=== PATIENT | male | born 1950 | race Caucasian/White ===

== ENCOUNTER 2016-10-02 06:54 | Day surgery (SDC) | payer MEDICARE, OTHER ==
--- NOTE | ~2016-10-02 | EGD ---
EGD REPORT [facility] [address] [id number] NAME: LYNETTE ZIEGLER : 46 STATUS : REG [facility]#: [id number] AGE: 66 ADM/REG DATE : 10/02/16 MR#: [id number] REPORT SERV DATE: 10/02/16 DICTATED BY: LINDA PINO DATE: 10/02/16 REPORT STATUS : Draft TRANSCRIBED BY: [employer] DATE: 10/02/16 [facility] Patient Name: Lynette Ziegler Date of : 1950 Attending MD: LINDA PINO, Procedure Date No Time: 10/02/2016 Procedure: Upper GI endoscopy Indications: Follow-up of previous ablation treatment of Cleaning's esophagus Referring MD: NUVIA MCGEE JR., SHAUN SINCLAIR MD Medicines: Monitored Anesthesia Care Complications: No immediate complications. Estimated blood loss: None. Procedure: After obtaining informed consent, the endoscope was passed under direct vision. Throughout the procedure, the patient's blood pressure, pulse, and oxygen saturations were monitored continuously. The GIF [id number] was introduced through the mouth, and advanced to the second part of duodenum. The upper GI endoscopy was accomplished without difficulty. The patient tolerated the procedure well. Findings: The Z-line was irregular. Focal radiofrequency ablation of Cleaning's esophagus was performed. With the endoscope in place, the position and extent of the Cleaning's mucosa and the anatomic landmarks were noted. The endoscope was then removed from the patient. The Halo radiofrequency ablation catheter was attached to the tip of the endoscope. The endoscope with the attached radiofrequency ablation catheter was then passed transorally under direct vision into the esophagus and advanced to the areas of Cleaning's mucosa. The radiofrequency ablation catheter was placed in contact with the surface of the Cleaning's mucosa under direct visualization and energy was applied twice at 12 J/cm2. The ablation zone was cleaned of coagulative debris. The ablation catheter and endoscope were then removed and the catheter was cleaned. The catheter and endoscope were reinserted into the esophagus. A second round of ablation was then performed. Energy was applied twice at 12 J/cm2 to retreat the areas of Cleaning's epithelium that had been treated with the first series of ablation. The areas of the esophagus where Cleaning's mucosa had been ablated were carefully examined. The exam of the esophagus was otherwise normal. The stomach was normal. The exam of the stomach was otherwise normal. The cardia and gastric fundus were normal on retroflexion. The examined duodenum was normal. EGD REPORT [address] [address] NAME: LYNETTE ZIEGLER : [birth year] STATUS : REG [facility] [place] PAT#: [id number] AGE: 66 ADM/REG DATE : 10/02/16 MR#: [id number] REPORT SERV DATE: 10/02/16 DICTATED BY: LINDA PINO DATE: 10/02/16 REPORT STATUS : Draft TRANSCRIBED BY: [employer] DATE: 10/02/16 Impression: - Z-line irregular,. Treated with radiofrequency ablation. - Normal stomach. - Normal examined duodenum. Recommendation: - Patient has a contact number available for emergencies. The signs and symptoms of potential delayed complications were discussed with the patient. Return to normal activities tomorrow. Written discharge instructions were provided to the patient. - Return to previous diet. - Continue present medications. - Repeat the upper endoscopy in 3 months for retreatment. Procedure Code(s): --- Professional --- 42170, Esophagogastroduodenoscopy, flexible, transoral; with ablation of tumor(s), polyp(s), or other lesion(s) (includes pre- and post-dilation and guide wire passage, when performed) Diagnosis Code(s): --- Professional --- K22.8, Other specified diseases of esophagus K22.70, Cleaning's esophagus without dysplasia Z09, Encounter for follow-up examination after completed treatment for conditions other than malignant neoplasm CPT copyright 2013 [employer]. All rights reserved. The codes documented in this report are preliminary and upon carbon accountant review may be revised to meet current compliance requirements. LINDA PINO, 10/02/2016 9:31 AM Number of Addenda: 0 Note Initiated On: 10/02/2016 9:15 AM Scope Withdrawal Time 0 hours 0 minutes 0 seconds [address] [place] [address]
[~2016-10-02 06:54] MED LIST: ACID REDUCER; ASAB PO; BLOOD PRESSURE MED PO; COZAAR100 MG PO; GLUCOSAMINEPO PO; LIPITOR10 PO; LIPITOR20 PO; MULTIPLE VIT PO; PRILOSEC40 MG PO; PROBIOTIC PO
[2016-12-29] MEDS ORDERED: MULTIPLE VIT PO (16:15)
== END 2016-10-02 23:59 | disposition home or self-care (01) ==
LOC: DMU 06:54
PROVIDERS: Internal Medicine Gastroenterology
PROC: 0D558ZZ Destruction of Esophagus, Via Natural or Artificial Opening Endoscopic (ICD-10-PCS; principal; 2016-10-02 08:30)
DX: Z09 Encounter for follow-up examination after completed treatment for conditions other than malignant neoplasm (principal); K22.8 Other specified diseases of esophagus; K22.70 Barrett's esophagus without dysplasia; I10 Essential (primary) hypertension; E66.9 Obesity, unspecified; G47.33 Obstructive sleep apnea (adult) (pediatric); K21.9 Gastro-esophageal reflux disease without esophagitis; E78.00 Pure hypercholesterolemia, unspecified